=== PATIENT | female | born 1960 | race Caucasian/White ===

== ENCOUNTER 2017-05-25 06:23 | Emergency (ER) | payer SELFPAY ==
[~2017-05-25] VITALS: Ht 162.5 cm; Wt 59.0 kg
[~2017-05-25 06:23] MED LIST: HYDROCODONE BIT1 T11 PO; ULTRAM50 MG PO
[2017-05-25] MEDS ORDERED: VIBRAMYCIN100 MG PO (09:16)
[2017-05-25] MEDS ORDERED: PREDNISONE20 M1 PO (09:16)
[2017-05-25] MEDS ORDERED: PROVENTIL HFA6.7 GM INH (09:16)
== END 2017-05-25 09:27 | disposition home or self-care (01) ==
LOC: ED 06:23
DX: J44.1 Chronic obstructive pulmonary disease with (acute) exacerbation (principal); F17.200 Nicotine dependence, unspecified, uncomplicated

== ENCOUNTER 2018-03-04 09:26 | Emergency (ER) | payer SELFPAY ==
[~2018-03-04] VITALS: Ht 162.5 cm; Wt 55.3 kg
[~2018-03-04 09:26] MED LIST changes: +PREDNISONE20 M1 PO; +PROVENTIL HFA6.7 GM INH; +VIBRAMYCIN100 MG PO
[2018-03-04] MEDS ORDERED: IBUPROFEN600 MG PO (11:49)
[2018-03-04] MEDS ORDERED: NORCO 5-325 TA1 EACH PO (11:49)
== END 2018-03-04 11:59 | disposition home or self-care (01) ==
LOC: ED 09:26
DX: S82.145A Nondisplaced bicondylar fracture of left tibia, initial encounter for closed fracture (principal); M25.462 Effusion, left knee; X50.1XXA Overexertion from prolonged static or awkward postures, initial encounter; Y93.89 Activity, other specified; Y92.098 Other place in other non-institutional residence as the place of occurrence of the external cause; Y99.8 Other external cause status

== ENCOUNTER → 2018-03-07 | Outpatient (CLI) | payer SELFPAY ==
[~2018-03-07] MED LIST changes: +IBUPROFEN600 MG PO; +NORCO 5-325 TA1 EACH PO
== END | disposition home or self-care (01) ==
LOC: ORTHO 01:11
DX: M25.462 Effusion, left knee (principal); Z91.81 History of falling

== ENCOUNTER → 2018-03-16 | Outpatient (CLI) | payer BC | END | disposition home or self-care (01) | LOC: ORTHO 02:05 | DX: S82.142D Displaced bicondylar fracture of left tibia, subsequent encounter for closed fracture with routine healing (principal); X58.XXXD Exposure to other specified factors, subsequent encounter; Z91.81 History of falling ==

== ENCOUNTER → 2018-04-04 | Outpatient (CLI) | payer BC | END | disposition home or self-care (01) | LOC: ORTHO 02:26 | DX: S82.142D Displaced bicondylar fracture of left tibia, subsequent encounter for closed fracture with routine healing (principal); X58.XXXD Exposure to other specified factors, subsequent encounter ==

== ENCOUNTER → 2018-04-26 | Outpatient (CLI) | payer BC, MEDICAID | END | disposition home or self-care (01) | LOC: ORTHO 01:10 | DX: S82.292D Other fracture of shaft of left tibia, subsequent encounter for closed fracture with routine healing (principal); X58.XXXD Exposure to other specified factors, subsequent encounter ==

== ENCOUNTER → 2018-05-31 | Outpatient (CLI) | payer BC, OTHER | END | disposition home or self-care (01) | LOC: ORTHO 01:12 | DX: S82.142D Displaced bicondylar fracture of left tibia, subsequent encounter for closed fracture with routine healing (principal); X58.XXXD Exposure to other specified factors, subsequent encounter ==

== ENCOUNTER → 2018-06-08 | Outpatient (CLI) | payer BC, OTHER ==
--- NOTE | ~2018-06-08 | PF ---
[place], [place] PULMONARY FUNCTION TEST NAME: ROSA M CAT [facility] #: [id number] UNIT #: [id number] ROOM: DOCTOR: PETRA NAPIER MD,GILES BIRTHDATE: [birth year] DOS: 06/08/2018 ORDERED BY: ____ HISTORY: The patient recorded 58-year-old female, height of 64 inches, weight of 130 pounds, BMI of 22.8. The patient was known with history of uncomplicated moderate persistent bronchial asthma, tobacco use, 2 pack of cigarettes per day for patient for 45 years. Symptoms reported as shortness of breath, nonproductive cough and frequent wheezing. SPIROMETRY: The FVC was 3.49 liters, 108% predicted value. The FEV1 2.50 liters, 98% predicted value. The patient's FEV1/FVC 72% post-bronchodilator. No changes of the patient noted of clinical significance. Flow volume loop was suggestive of very mild obstructive airway pattern with incomplete inspiratory flow volume loop. LUNG VOLUME: Thoracic gas volume recorded as 180%, residual volume 40%, total lung capacity 120%. The patient lung diffusion recorded 103%. Airway resistance and passive conductance noted normal; however, partial improvement occurred postbronchodilator test. FINAL IMPRESSION: Possibility of mild reversible obstructive lung disease could be considered current pulmonary function test. Clinical correlation advised. GILES LAMBERT MD CM:PFREPORT:PULMONARY FUNCTION TEST [id number] GILES NAPIER MD
== END | disposition home or self-care (01) ==
LOC: RAD 09:59
DX: S82.142D Displaced bicondylar fracture of left tibia, subsequent encounter for closed fracture with routine healing (principal); X58.XXXD Exposure to other specified factors, subsequent encounter; M81.8 Other osteoporosis without current pathological fracture; J45.40 Moderate persistent asthma, uncomplicated; F17.200 Nicotine dependence, unspecified, uncomplicated; Z78.0 Asymptomatic menopausal state

== ENCOUNTER 2019-07-26 22:17 | Emergency (ER) | payer OTHER ==
[~2019-07-26] VITALS: Ht 162.5 cm; Wt 70.3 kg
== END 2019-07-26 23:00 ==
LOC: ED 22:17
DX: F10.920 Alcohol use, unspecified with intoxication, uncomplicated (principal); J44.9 Chronic obstructive pulmonary disease, unspecified; K21.9 Gastro-esophageal reflux disease without esophagitis; F17.200 Nicotine dependence, unspecified, uncomplicated; Z53.29 Procedure and treatment not carried out because of patient's decision for other reasons; Z79.899 Other long term (current) drug therapy

== ENCOUNTER → 2020-08-21 | Outpatient (CLI) | payer MEDICARE, MEDICAID ==
[2020-08-21 11:01] LABS: BASO % 0.5 % (0.0-1.0); EOS # 0.2 10*3/uL (0.0-0.4); EOS % 2.7 % (1.0-4.0); HEMATOCRIT 47.6 % (37.0-47.0); LYMPH # 0.6 10*3/uL (1.3-4.4); LYMPH % 10.8 % (27.0-41.0); MEAN CELL VOLUME 92.6 fl (81.0-99.0); MEAN CORPUSCULAR HGB 29.8 pg (27.0-31.0); MEAN CORPUSCULAR HGB CONC 32.1 g/dl (33.0-37.0); MEAN PLATELET VOLUME 9.4 fl (9.6-12.3); MONO # 0.3 10*3/uL (0.1-1.0); MONO % 5.6 % (3.0-9.0); NEUT # 4.7 10*3/uL (2.3-7.9); NEUT % 80.1 % (47.0-73.0); PLATELET COUNT AUTOMATED 201 10*3/uL (130-400); RED BLOOD COUNT 5.14 10*6/uL (4.10-5.10); RED CELL DISTRI WIDTH 12.1 % (0-14.5); WHITE BLOOD COUNT 5.9 10*3/uL (4.8-10.8)
[2020-08-21 11:12] LABS: ACT PARTIAL THROMBO TIME 29.4 SECONDS (20.0-32.1); INTERNATIONAL NORM RATIO 0.9 (2.0-3.5)
[2020-08-21 11:32] LABS: ALBUMIN 3.7 gm/dl (3.1-4.5); ALKALINE PHOSPHATASE 124 U/L (45-117); BUN 8 mg/dl (7-24); CHLORIDE 105 mmol/L (98-107); CREATININE 0.63 mg/dL (0.55-1.02); IRON 84 ug/dL (50-170); LIPASE 81 U/L (73-393); POTASSIUM 4.7 mmol/L (3.5-5.1); SGOT/AST 56 IU/L (3-35); SGPT/ALT 56 U/L (12-78); SODIUM 134 mmol/L (136-145); TOTAL IRON BINDING CAPACITY 406 ug/dl (250-450); TOTAL PROTEIN 8.3 gm/dL (6.4-8.2)
[2020-08-21 11:38] LABS: FREE T4 0.73 ng/dl (0.76-1.46)
[2020-08-21 11:52] LABS: FERRITIN 241.9 ng/mL (10.0-291.0)
[2020-08-22 10:07] LABS: HEP B CORE AB TOTAL Negative (Negative); HEPATITIS B SURFACE AB Non Reactive (.); HEPATITIS B SURFACE AG Negative (Negative)
[2020-08-22 15:06] LABS: t-TRANSGLUTAMINASE (tTG) IGA <2 U/mL (0-3); t-TRANSGLUTAMINASE (tTG) IgG <2 U/mL (0-5)
== END | disposition home or self-care (01) ==
LOC: LAB 10:11
PROVIDERS: Specialist; ATTEND Nurse Practitioner Family
DX: R53.83 Other fatigue (principal); R10.9 Unspecified abdominal pain; K90.9 Intestinal malabsorption, unspecified; R19.7 Diarrhea, unspecified

== ENCOUNTER → 2023-04-14 | Outpatient (CLI) | payer MEDICARE | END | disposition home or self-care (01) | LOC: US 04-10 14:00 | PROVIDERS: ATTEND Student in an Organized Health Care Education/Training Program | DX: M79.89 Other specified soft tissue disorders (principal) ==

== ENCOUNTER 2025-04-09 12:10 | Emergency (ER) | payer OTHER ==
[2025-04-09] MEDS ORDERED: SODIUM CHLORIDE 0.9% 1,000 ML IV ONE (12:30)
[2025-04-09 12:59] LABS: BASO # 0.0 10*3/uL (0.0-0.1); BASO % 0.6 % (0.0-1.0); EOS # 0.0 10*3/uL (0.0-0.4); EOS % 0.8 % (1.0-4.0); MEAN CELL VOLUME 89.1 fl (81.0-99.0); MEAN CORPUSCULAR HGB 30.7 pg (27.0-31.0); MEAN PLATELET VOLUME 10.4 fl (9.6-12.3); MONO # 0.4 10*3/uL (0.1-1.0); MONO % 6.8 % (3.0-9.0); NEUT # 4.3 10*3/uL (2.3-7.9); NEUT % 83.1 % (47.0-73.0); NUCLEATED RED BLOOD CELL 0.0 % (0.0-0.0); NUCLEATED RED BLOOD CELL 0.0 10*3/uL (0.0-0.0); PLATELET COUNT AUTOMATED 181 10*3/uL (130-400); RED CELL DISTRI WIDTH 11.8 % (0-14.5)
[2025-04-09 13:21] LABS: BUN 6 mg/dl (9-23); SGPT/ALT 36 U/L (5-49)
[2025-04-09 15:45] LABS: BILIRUBIN Negative (Negative); BLOOD Trace-Lysed (Negative); CLARITY Clear (Clear); COLOR Yellow (Yellow); KETONE 2+ (Negative); LEUKO ESTERASE Trace (Negative); NITRITE Negative (Negative); PH 6.0 (4.5-8.0); SPECIFIC GRAVITY <= 1.005 (1.001-1.030); UROBILINOGEN 0.2 E.U./dl (0.0-1.0)
[2025-04-09 15:55] LABS: BACTERIA 1+
[2025-04-09] MEDS ORDERED: MACROBID100 M1 PO (16:23)
[2025-04-09] MEDS ORDERED: Nitrofurantoin Monohydrate/N 100 MG CAP PO ONE (16:25)
== END 2025-04-09 16:33 | disposition home or self-care (01) ==
LOC: ED 12:10
PROVIDERS: Nurse Practitioner Family
DX: R53.1 Weakness (principal); N30.01 Acute cystitis with hematuria; M54.50 Low back pain, unspecified; E87.1 Hypo-osmolality and hyponatremia; J44.89 Other specified chronic obstructive pulmonary disease; F32.A Depression, unspecified; K21.9 Gastro-esophageal reflux disease without esophagitis

== ENCOUNTER → 2025-05-05 | Outpatient (CLI) | payer OTHER ==
[~2025-05-05] MED LIST changes: +MACROBID100 M1 PO
[2025-05-05 16:12] LABS: BASO # 0.0 10*3/uL (0.0-0.1); BASO % 0.3 % (0.0-1.0); EOS # 0.0 10*3/uL (0.0-0.4); EOS % 0.7 % (1.0-4.0); MEAN CELL VOLUME 91.9 fl (81.0-99.0); MEAN CORPUSCULAR HGB 30.3 pg (27.0-31.0); MEAN PLATELET VOLUME 11.1 fl (9.6-12.3); MONO # 0.3 10*3/uL (0.1-1.0); MONO % 5.4 % (3.0-9.0); NEUT # 5.1 10*3/uL (2.3-7.9); NEUT % 85.6 % (47.0-73.0); NUCLEATED RED BLOOD CELL 0.0 % (0.0-0.0); NUCLEATED RED BLOOD CELL 0.0 10*3/uL (0.0-0.0); PLATELET COUNT AUTOMATED 136 10*3/uL (130-400); RED CELL DISTRI WIDTH 12.7 % (0-14.5)
[2025-05-05 16:50] LABS: BUN 19 mg/dl (9-23); FREE T4 1.07 ng/dl (0.89-1.76); LDL CHOLESTEROL 57 mg/dL (9-159); SGPT/ALT 19 U/L (5-49)
[2025-05-05 19:06] LABS: VITAMIN D, 25-HYDROXY 6.6 ng/mL (30-100)
== END | disposition home or self-care (01) ==
LOC: MRI 04-29 11:00 → LAB 14:10 → MRI 14:30
PROVIDERS: ATTEND Internal Medicine
DX: M47.816 Spondylosis without myelopathy or radiculopathy, lumbar region (principal); M48.07 Spinal stenosis, lumbosacral region; M54.50 Low back pain, unspecified; F17.210 Nicotine dependence, cigarettes, uncomplicated; F10.10 Alcohol abuse, uncomplicated; R53.83 Other fatigue; E53.9 Vitamin B deficiency, unspecified; E55.9 Vitamin D deficiency, unspecified; E78.5 Hyperlipidemia, unspecified; Z79.899 Other long term (current) drug therapy